=== PATIENT | male | born 1965 | race Hispanic/Latino ===

== ENCOUNTER 2018-03-11 10:40 | Emergency (ER) | payer OTHER, SELFPAY ==
--- NOTE | 2018-03-11 10:53 | ED_ITS ---
HPI - Fall General Chief Complaint: Head Injury Stated Complaint: Head Laceration Time Seen by Provider: 03/11/18 10:41 Source: patient and EMS Mode of arrival: EMS Limitations: altered mental status History of Present Illness HPI Narrative: Patient is a 53-year-old male brought in by EMS after they were called because the patient was found ?unresponsive? next to his truck. 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 Unknown as to how the patient ended up on the ground however he did have bleeding from his head. EMS was called. They state that the patient was brought to them by a staff at the [facility]. He arrived without a cervical collar and on a backboard with his head bandaged. Patient states that he does not remember what happens. Continues to state that he is nauseous and has a headache. He was given 2 doses of Zofran by EMS EN route to the hospital. Review of Systems Review of Systems Patient only states that he is nauseous and has headache. Whenever he is asked about other symptoms he just states that he has a headache. He does not remember how he ended up on the ground. unobtainable due to mental condition Exam Initial Vital Signs Initial Vital Signs: Vital Signs Temperature 96.6 F L 03/11/18 10:57 Pulse Rate 86 03/11/18 10:57 Respiratory Rate 16 03/11/18 10:57 Blood Pressure 114/75 03/11/18 10:57 Pulse Oximetry 96 03/11/18 10:57 Const General: healthy appearing, well developed and well groomed Nutritional Appearance: overweight Orientation: alert, awake, not oriented to person, not oriented to place, not oriented to time and confused Limitations: altered mental status HENMT Head: other (Patient with a 3 cm right angle laceration to the left parietal portion of his scalp and a 2 cm laceration to the right occipital portion of his scalp) Nose: external nose normal Face and sinus: normal facial exam Eyes Pupils: PERRL EOM: EOM intact bilaterally Neck Other: Patient was placed in a cervical collar here in the emergency department. Chest Chest: normal inspection of the chest Resp Effort & Inspection: normal respiratory effort Auscultation: clear to auscultation bilaterally Cardio Rate: regular rate Rhythm: regular rhythm Pulses: radial pulses present GI Inspection: non-distended Palpation: soft and No firm Back/Spine/Pelvis Other: No gross deformities. No step-off abnormalities found on exam. Patient denies any pain with palpation Skin Other: Scalp lacerations as described in the head section Neuro General: alert and awake Other: Patient has a GCS of 15 Does follow commands Moves all 4 extremities Denies any changes in sensation to his upper and lower extremities Does not remember the event her how he ended up on the ground Does state that he lives in [place] however does not remember driving to the [facility] Extrem Other: No gross deformities moves all 4 extremities Psych Appearance: grossly normal and well kempt [facility] Comment: Reviewed patient's past medical surgical and family history how patient does not provide any answers when asked these questions. Procedures Laceration Repair Laceration 1: Site: scalp Side (If applicable): left Size (cm): 3 Description: other (Right angle) Depth: simple, single layer Local Anesthetic: lidocaine 1% and with epi Amount of anesthesia used (mL): 2 Pre-repair: wound explored and irrigated extensively Skin layer closed with: other ([place]) Laceration 2: Site: scalp Side (If applicable): right Size (cm): 2 Description: linear Local Anesthetic: lidocaine 1% and with epi Amount of anesthesia used (mL): 2 Pre-repair: wound explored and irrigated extensively Skin layer closed with: other ([place]) Course Orders Ordered: ED Orders 03/11/18 10:54 Basic Metabolic Panel Stat Complete Blood Count AUTO DIFF Stat Ethanol (ETOH) Stat Partial Thromboplastin Time Stat Prothrombin Time INR Stat 03/11/18 11:22 CT cervical spine wo con Stat CT head/brain wo con Stat Discontinued Medications Morphine Sulfate (Morphine) 4 mg IV NOW ONE Stop: 03/11/18 10:56 Last Admin: 03/11/18 11:57 Dose: 4 mg Ondansetron HCl (Zofran) 4 mg IV NOW ONE Stop: 03/11/18 10:58 Last Admin: 03/11/18 11:42 Dose: 4 mg Vital Signs - 8 hr 03/11/18 10:57 Temperature 96.6 F L Pulse Rate 86 Respiratory Rate 16 Blood Pressure 114/75 Pulse Oximetry 96 MDM - Fall Imaging Data CT scan - head: Radiologist's impression: PROCEDURE: CT HEAD/BRAIN WO CON INDICATIONS: Fall with ALOC and left side scalp lceration TECHNIQUE: Noncontrast 4.5 mm thick angled axial sections acquired from the foramen magnum to the vertex, with coronal and sagittal reformats. For radiation dose reduction, the following was used: automated exposure control, adjustment of mA and/or kV according to patient size. COMPARISON: None. FINDINGS: Image quality: Diagnostic. CSF spaces: Basal cisterns are patent. No extra-axial fluid collections. Ventricles are normal in size and shape. Brain: No intracranial hemorrhage, mass, or mass effect. Barnes-white matter interface is preserved. Skull and face: There is a wedge-shaped mildly depressed fracture involving the outer table of the left parietal bone. This extends to a depth of slightly greater than 50% of the bone thickness. The inner table appears intact. There are a few small associated chip fracture fragments. The visualized facial bones also appear intact. There is an overlying left parietal soft tissue laceration. There is also a right posterior parietal scalp hematoma without a corresponding fracture. Sinuses: Visualized sinuses and mastoids are clear. IMPRESSION: 1. Partial-thickness left calvarial fracture involving the outer table of the parietal bone suggestive of a penetrating trauma injury. The inner table appears intact without evidence of intracranial extension. 2. No acute intracranial abnormality. 3. Right posterior parietal scalp hematoma without associated fracture. Findings discussed with Dr. Fuentes on 03/11/18 at 11:20 AM. Dictated by: Eddie Castillo M.D. on 03/11/2018 at 11:16 Approved by: Eddie Castillo M.D. on 03/11/2018 at 11:26 CT cervical spine: Radiologist's impression: PROCEDURE: CT CERVICAL SPINE WO CON INDICATIONS: Fall with altered level consciousness and head injury TECHNIQUE: Noncontrast 3 mm thick sections acquired from the skull base to the T4 level. Sagittal and coronal reformats were then constructed. For radiation dose reduction, the following was used: automated exposure control, adjustment of mA and/or kV according to patient size. COMPARISON: None. FINDINGS: Image quality: Diagnostic. Bones: No fractures or subluxation. There is straightening of the cervical lordosis. Moderate disc space narrowing demonstrated at C5-C6 with complete sclerosis and osteophytosis. There is mild uncovertebral joint arthropathy also noted at this level. There is mild multilevel facet arthropathy in the mid and lower cervical spine. Visualized superior ribs are intact. Soft tissues: Prevertebral soft tissues are normal in thickness. No paravertebral hematomas. No apical pneumothoraces. IMPRESSION: 1. No fracture or subluxation. 2. Mild multilevel degenerative changes. Dictated by: Eddie Castillo M.D. on 03/11/2018 at 11:30 Approved by: Eddie Castillo M.D. on 03/11/2018 at 11:32 [facility] Narrative Medical decision making narrative: Patient with unknown mechanism as to how he fell. Does have amnesia to the event. His scalp wounds were repaired as above. Patient does have a skull fracture. No underlying bleed. Given his situation, the unknown events as to how he fell, his skull fracture, his amnesia , I feel that patient being transferred to an area that has a trauma Services and Neurosurgery service is not unreasonable. I discussed the patient with Dr. Roman at the Emergency Department at [facility] who accepts the patient in transfer. Patient is stable for transfer for. I did discuss this with the patient he expressed understanding and agreement. Discharge Plan Departure Patient Disposition: [facility] Clinical Impression: Skull fracture, Fall, Nausea, Amnesia
[2018-03-11 10:57] VITALS: BP 114/75; PULSE 86; RESP 16; TEMP 35.9; O2SAT 96; BMI 33.9
--- NOTE | 2018-03-11 11:22 | DI.CT.S_ITS ---
PROCEDURE: CT CERVICAL SPINE WO CON INDICATIONS: Fall with altered level consciousness and head injury TECHNIQUE: Noncontrast 3 mm thick sections acquired from the skull base to the T4 level. Sagittal and coronal reformats were then constructed. For radiation dose reduction, the following was used: automated exposure control, adjustment of mA and/or kV according to patient size. COMPARISON: None. FINDINGS: Image quality: Diagnostic. Bones: No fractures or subluxation. There is straightening of the cervical lordosis. Moderate disc space narrowing demonstrated at C5-C6 with complete sclerosis and osteophytosis. There is mild uncovertebral joint arthropathy also noted at this level. There is mild multilevel facet arthropathy in the mid and lower cervical spine. Visualized superior ribs are intact. Soft tissues: Prevertebral soft tissues are normal in thickness. No paravertebral hematomas. No apical pneumothoraces. IMPRESSION: 1. No fracture or subluxation. 2. Mild multilevel degenerative changes. Dictated by: Eddie Castillo M.D. on 03/11/2018 at 11:30 Approved by: Eddie Castillo M.D. on 03/11/2018 at 11:32
--- NOTE | 2018-03-11 11:22 | DI.CT.S_ITS ---
PROCEDURE: CT HEAD/BRAIN WO CON INDICATIONS: Fall with ALOC and left side scalp lceration TECHNIQUE: Noncontrast 4.5 mm thick angled axial sections acquired from the foramen magnum to the vertex, with coronal and sagittal reformats. For radiation dose reduction, the following was used: automated exposure control, adjustment of mA and/or kV according to patient size. COMPARISON: None. FINDINGS: Image quality: Diagnostic. CSF spaces: Basal cisterns are patent. No extra-axial fluid collections. Ventricles are normal in size and shape. Brain: No intracranial hemorrhage, mass, or mass effect. Barnes-white matter interface is preserved. Skull and face: There is a wedge-shaped mildly depressed fracture involving the outer table of the left parietal bone. This extends to a depth of slightly greater than 50% of the bone thickness. The inner table appears intact. There are a few small associated chip fracture fragments. The visualized facial bones also appear intact. There is an overlying left parietal soft tissue laceration. There is also a right posterior parietal scalp hematoma without a corresponding fracture. Sinuses: Visualized sinuses and mastoids are clear. IMPRESSION: 1. Partial-thickness left calvarial fracture involving the outer table of the parietal bone suggestive of a penetrating trauma injury. The inner table appears intact without evidence of intracranial extension. 2. No acute intracranial abnormality. 3. Right posterior parietal scalp hematoma without associated fracture. Findings discussed with Dr. Fuentes on 03/11/18 at 11:20 AM. Dictated by: Eddie Castillo M.D. on 03/11/2018 at 11:16 Approved by: Eddie Castillo M.D. on 03/11/2018 at 11:26
[2018-03-11 11:30] VITALS: BP 136/78; PULSE 86; RESP 18; O2SAT 97
[2018-03-11] MEDS: ONDANSETRON 4 MG/2 ML INJ IV ×2 (11:42→13:31)
[2018-03-11] MEDS: MORPHINE 4 MG/ML INJ IV (11:57)
[2018-03-11 12:00] VITALS: BP 121/79; PULSE 86; RESP 18; O2SAT 100
--- NOTE | 2018-03-11 12:27 | PC.NURSE ---
2 site on back of head rinsed with NS, dr mcfarlane used stapler for the two areas. pt becomes nauseated with any movement, whether from bed or moving head side to side.
--- NOTE | 2018-03-11 12:34 | PC.NURSE ---
Pt is on cpap for sleep
[2018-03-11 12:38] VITALS: BP 108/68; PULSE 85; RESP 12; O2SAT 93
[2018-03-11 12:51] LABS: Add Manual Diff / Slide Review NO; Basophils Percent Auto 0.3 % (0-2); Eosinophils Percent Auto 0.7 % (2-4); Hematocrit 40.6 % (41-53); Hemoglobin 13.5 g/dL (13.5-17.5); Lymphocytes Percent Auto 7.3 % (25-40); Mean Corpuscular HGB Conc 33.3 % (30-36); Mean Corpuscular Hemoglobin 27.6 PG (26-34); Mean Corpuscular Volume 82.9 fL (80-100); Monocytes Percent Auto 6.5 % (3-14); Neutrophils Absolute Auto 12300 /uL (3000-5900); Neutrophils Percent Auto 85.2 % (50-75); Platelet Count 273 X10^3/uL (150-400); Red Cell Distribution Width 14.8 % (11.6-14.8); White Blood Cell Count 14.4 X10^3/uL (4.5-11.0)
[2018-03-11 12:56] VITALS: BP 126/63; PULSE 88; RESP 15; O2SAT 92
[2018-03-11 12:59] LABS: PTT Partial Thromboplastin Tim 30 SECONDS (26.4-36.2)
[2018-03-11 13:01] LABS: BUN Creatinine Ratio 22.5 (6-22); Blood Urea Nitrogen 18 mg/dL (9-20); Carbon Dioxide 25 mmol/L (22-32); Chloride 100 mmol/L (98-107); Estimated Glomerular Filt Rate > 60.0 mL/min (>60); Ethanol (ETOH) < 10 mg/dL; Glucose 120 mg/dL (70-100); HEMOLYSIS < 15 (0-50); Potassium 3.2 mmol/L (3.4-5.1); Sodium 136 mmol/L (137-145)
--- NOTE | 2018-03-11 13:18 | PC.NURSE ---
report faxed to [facility]. report given to Villa with [facility].
== END 2018-03-11 13:33 | disposition short-term general hospital (02) ==
PROVIDERS: Emergency Provider Emergency Medicine
DX: S02.91XA Unspecified fracture of skull, initial encounter for closed fracture (principal); W19.XXXA Unspecified fall, initial encounter; R11.10 Vomiting, unspecified; R41.3 Other amnesia; Y99.0 Civilian activity done for income or pay
CPT/HCPCS: 12002; 36415; 70450; 72125; 80048; 80320; 85025; 85610; 85730; 96374; 96375; 96376; 99283; 99285; 99291; J2270; J2405